=== PATIENT | female | born 1985 | race Caucasian/White ===

== ENCOUNTER 2018-04-11 09:59 | Outpatient (CLI) | payer BC | END 2018-04-11 10:00 | disposition home or self-care (01) | LOC: LABBT 09:59 | PROVIDERS: ATTEND Obstetrics & Gynecology | DX: Z01.812 Encounter for preprocedural laboratory examination (principal); O02.1 Missed abortion | CPT/HCPCS: 85027; 86850; 86870; 86900; 86901; 86922 ==

== ENCOUNTER 2018-04-12 10:03 | Day surgery (SDC) | payer BC ==
[2018-04-11 10:35] VITALS: BMI 31.8
[2018-04-11 11:30] LABS: Hemoglobin 12.9 g/dL (12.0-16.0); Mean Corpuscular HGB CONC 35.7 g/dL (32.0-36.0); Mean Corpuscular Hemoglobin 31.2 pg (27.0-31.0); Mean Corpuscular Volume 87.4 fL (78.0-98.0); Mean Platelet Volume 8.8 fL (7.4-10.4); Platelet Count 132 thou/uL (130-400); RBC Distribution Width 11.9 % (11.5-14.5); Red Blood Cell (RBC) Count 4.15 mill/uL (4.20-5.40); White Blood Cell (WBC) Count 6.6 thou/uL (4.8-10.8)
--- NOTE | 2018-04-11 12:09 | HP ---
HISTORY OF PRESENT ILLNESS: Ms. Raygoza is a 33-year-old white female G2, P1 who is at 12-13 weeks b y last menstrual period with ultrasound confirmation who presented for a 12 week visit today. Unfort unately, no heart tones were auscultated with the Doppler and therefore transabdominal ultrasou nd was performed. A missed miscarriage measuring approximately 9 weeks was noted on transabdominal e xamination with no cardiac activity visualized. This was confirmed by myself along with Dr. Mati Garcia. The patient has had no vaginal bleeding recently or cramping. No fever, no recent illnesses. PAST MEDICAL HISTORY: Negative. PAST SURGICAL HISTORY: Negative. She has had 1 previous , delivery 01/21/2016 at 37 weeks with gestational hypertension, otherwise uncomplicated. FAMILY HISTORY: Noncontributory. SOCIAL HISTORY: Nonsmoker, no current alcohol use. The patient works as a nurse practitioner and is . [facility] SIGN[facility]ANCE: Her blood type is A negative. She did have a positive Rh antibody screening, but had received RhoGAM in the first trimester for some vaginal spotting. HIV negative, h epatitis B surface antigen negative, rubella immune. PHYSICAL EXAMINATION: VITAL SIGNS: The patient's height is 5 feet 6 inches, weight 197. BMI 31.8, blood pressure is 134/8 0, pulse 82, respirations 18. HEENT: Within normal limits. NECK: Supple, no thyromegaly or masses. CHEST: Clear to auscultation. HEART: Regular rate and rhythm. S1, S2 heart sounds, no murmurs, rubs or gallops. ABDOMEN: Soft, nontender, nondistended. No palpable masses. PELVIC: Vulva and vagina had no lesions. Cervix had no gross lesions. Uterus is 8-10 week size. Transabdominal ultrasound confirming 9 week embryonic demise. ASSESSMENT: This is a 33-year-old white female with 9 week embryonic demise. Rh negative stat us. PLAN: Suction D&C scheduled for 04/12/2018. We will place 800 mcg of Cytotec vaginally approximatel y 3-4 hours prior to procedure to help with cervical ripening. She will also receive RhoGAM postoper atively.
[2018-04-12] MEDS ORDERED: Midazolam HCl 2 mg/2 ml Vial ONE ×2 (11:22→11:46)
[2018-04-12] MEDS ORDERED: CEFAZOLIN/Water 2 GM/20 ML SYRINGE ONE (11:22)
[2018-04-12] MEDS ORDERED: Misoprostol 200 MCG TAB ONE (11:29)
[2018-04-12] MEDS ORDERED: Fentanyl 100 MCG/2 ML VIAL ONE (11:46)
[2018-04-12] MEDS ORDERED: Ondansetron HCl/PF 4 MG/2 ML Vial ONE (15:06)
[2018-04-12] MEDS ORDERED: Ketorolac Tromethamine 30 MG/ML VIAL ONE (15:06)
[2018-04-12] MEDS ORDERED: Lidocaine 1% PF 5 ML VIAL ONE (15:06)
[2018-04-12] MEDS ORDERED: Dexamethasone 20 MG/5 ML VIAL ONE (15:06)
[2018-04-12] MEDS ORDERED: PROPOFOL 200 MG/20 ML VIAL ONE (15:06)
--- NOTE | 2018-04-12 15:48 | OP ---
DATE OF PROCEDURE: 04/12/2018 PREOPERATIVE DIAGNOSES: 1. A 32-year-old white female with 9-week embryonic demise. 2. Rh negative blood type. POSTOPERATIVE DIAGNOSES: 1. A 32-year-old white female with 9-week embryonic demise. 2. Rh negative blood type. PROCEDURE PERFORMED: Suction D&C. SURGEON: Deanna Chiu M.D. ANESTHESIA: General with LMA. ESTIMATED BLOOD LOSS: 100 mL. COMPLICATIONS: None. COUNTS: Correct x2. ANTIBIOTICS: Two grams Ancef watermelon harvesting supervisor to the OR. FINDINGS: Uterus approximately 10 weeks size and products evacuated consistent with products of conc eption. DISPOSITION: To recovery room and then plan for discharge home from day stay. DESCRIPTION OF OPERATIVE PROCEDURE: The patient previously received informed consent in regards to jerzy alatorre. She was taken back to the operating room where she received general anesthesia with LMA with out complications. She was placed in dorsal lithotomy position, prepped and draped in usual sterile fashion. In and out catheterization of the bladder was performed during the prep process. Exam unde r anesthesia was performed with the previously mentioned findings and a side-arm speculum was then pl aced in the vagina. The anterior lip of the cervix was grasped with single-tooth tenaculum. The tahira mary sounded to 10 cm. A size 10 curved suction curette was chosen. The cervix was easily dilated to size 18 Bolden dilator and patient previously had placed Cytotec vaginally preoperatively for cervica l ripening. The suction curette was inserted through the cervical os into the endometrial cavity and the intrauterine contents were evacuated with suction at 50 mm of pressure. Once felt, all the tiss ue had been evacuated satisfactorily, a sharp curettage was performed and uterine cavity had a gritty texture throughout indicating complete evacuation. The clots were then removed again with the sucti on curette from the endometrial cavity. The tenaculum was then removed. Hemostasis at the tenaculum site was obtained with a sponge stick. A sidearm speculum was removed. The patient was awakened fr om anesthesia and transferred to the recovery room in stable condition.
== END 2018-04-12 14:15 | disposition home or self-care (01) ==
LOC: SDC 10:03
PROVIDERS: ATTEND Obstetrics & Gynecology
PROC: 10D17ZZ Extraction of Products of Conception, Retained, Via Natural or Artificial Opening (ICD-10-PCS; principal; 2018-04-12)
DX: O03.4 Incomplete spontaneous abortion without complication (principal); Z79.899 Other long term (current) drug therapy; Z3A.09 9 weeks gestation of pregnancy
CPT/HCPCS: 85027; 86850; 86870; 86900; 86901; 86922; 88305; 90384; 96372; J1100; J1885; J2001; J2250; J2405; J2704; J3010

== ENCOUNTER 2019-03-01 18:00 | Inpatient (IN) | payer BC ==
[2019-03-01] MEDS ORDERED: Butorphanol Tartrate 1 MG/ML VIAL SLOW IVP PRN (19:03)
[2019-03-01] MEDS ORDERED: NS / Oxytocin 40 units/1000ml 1,000 ML IV PRN (19:03)
[2019-03-01] MEDS ORDERED: Ibuprofen 800 MG TAB PO PRN (19:03)
[2019-03-01] MEDS ORDERED: hydrALAZINE 20 MG/ML VIAL SLOW IVP PRN (19:03)
[2019-03-01] MEDS ORDERED: Misoprostol 200 MCG TAB PR PRN (19:03)
[2019-03-01] MEDS ORDERED: Lidocaine 1% (PF) 30 ML VIAL SC PRN (19:03)
[2019-03-01] MEDS ORDERED: Promethazine HCl 25 MG/ML VIAL IM PRN (19:03)
[2019-03-01] MEDS ORDERED: Zolpidem Tartrate 5 MG TAB PO PRN (19:03)
[2019-03-01] MEDS ORDERED: Ondansetron PF 4 MG/2 ML Vial IVP PRN (19:03)
[2019-03-01] MEDS ORDERED: HYDROcodone/Acetaminophen 5/325 mg Tablet PO PRN (19:03)
[2019-03-01 19:18] VITALS: BMI 38.7
[2019-03-01] MEDS: Misoprostol 100 MCG TAB VAG SCH ×2 (20:00→23:42)
[2019-03-01 20:05] LABS: Hemoglobin 10.8 g/dL (12.0-16.0); Mean Corpuscular HGB CONC 34.5 g/dL (32.0-36.0); Mean Corpuscular Hemoglobin 30.7 pg (27.0-31.0); Mean Corpuscular Volume 89.1 fL (78.0-98.0); Platelet Count 153 thou/uL (130-400); RBC Distribution Width 13.4 % (11.5-14.5); Red Blood Cell (RBC) Count 3.53 mill/uL (4.20-5.40); White Blood Cell (WBC) Count 8.6 thou/uL (4.8-10.8)
[2019-03-01 20:36] LABS: ALT (SGPT) 9 U/L (8-55); AST (SGOT) 11 U/L (5-34); Albumin 3.3 g/dL (3.5-5.0); Alkaline Phosphatase 116 U/L (40-150); Anion Gap 14 mmol/L (10-20); BUN (Urea Nitrogen) 5 mg/dL (7.0-18.7); Bilirubin, Total 0.5 mg/dL (0.2-1.2); Calc. Creatinine Clearance 213 mL/min (70-130); Calcium 8.3 mg/dL (7.8-10.44); Carbon Dioxide 19 mmol/L (22-29); Chloride 108 mmol/L (98-107); Estimated GFR-MDRD Greater than 90; Globulin 2.7 g/dL (2.4-3.5); Glucose 118 mg/dL (70-105); Potassium 3.5 mmol/L (3.5-5.1); Sodium 137 mmol/L (136-145)
[2019-03-01 20:45] LABS: Syphilis Antibody Nonreactive (Nonreactive); Syphilis Antibody Index 0.05 S/CO (<1.00 Non-Reactive)
[2019-03-01 22:40] LABS: HBSAg Index 0.28 S/CO (0-0.99); Hep B Surf Ag Non-Reactive S/CO (NonReactive)
[2019-03-02] MEDS: Lactated Ringer's 1,000 ML IV SCH ×3 (02:12→13:38)
[2019-03-02] MEDS: Misoprostol 100 MCG TAB VAG SCH (04:25)
[2019-03-02] MEDS: NS w/ Oxytocin 10 units 500 ML IV SCH (08:41)
[2019-03-02] MEDS ORDERED: Fentanyl 4 mcg/Bup 0.1% Cadd 100 ML ONE (10:54)
[2019-03-02] MEDS ORDERED: Bupivacaine 0.5% 10 ML VIAL ONE (10:59)
[2019-03-02] MEDS ORDERED: Fentanyl 100 MCG/2 ML VIAL ONE (10:59)
[2019-03-02] MEDS ORDERED: Bupivacaine 0.25% 10 ML VIAL EPIDURAL SCH (11:27)
[2019-03-02] MEDS ORDERED: Fentanyl 100 MCG/2 ML VIAL I-THECAL SCH (11:27)
[2019-03-02] MEDS ORDERED: Naloxone HCl 0.4 mg/ml Vial IVP PRN ×2 (11:28)
[2019-03-02] MEDS ORDERED: Lactated Ringer's 500 ML IV PRN (11:28)
[2019-03-02] MEDS ORDERED: Acetaminophen 325 MG TAB PO PRN (11:28)
[2019-03-02] MEDS ORDERED: ePHEDrine/0.9% NaCl/PF SYRINGE 50 mg/10 ml SLOW IVP PRN (11:28)
[2019-03-02] MEDS ORDERED: diphenhydrAMINE 50 MG/ML VIAL IVP PRN (11:28)
[2019-03-02] MEDS ORDERED: Ondansetron PF 4 MG/2 ML Vial IVP PRN (11:28)
[2019-03-02] MEDS ORDERED: Promethazine HCl 25 MG/ML VIAL IM PRN (11:28)
[2019-03-02] MEDS ORDERED: Communication Order-Pharmacy FS SCH (11:30)
[2019-03-02] MEDS ORDERED: Fentanyl 4 mcg/Bupivacaine 0.1% Cassette 100 ML EPIDURAL SCH (11:30)
[2019-03-02 15:43] LABS: #Lymphocytes 1.6 thou/uL (1.20-3.40); #Monocytes 0.5 thou/uL (0.11-0.59); #Neutrophils 9.9 thou/uL (1.40-6.50); %Basophils 0.1 % (0.0-1.0); %Eosinophils 0.3 % (0.0-10.0); %Lymphocytes 13.5 % (21.0-51.0); %Monocytes 4.3 % (0.0-10.0); %Neutrophils 81.8 % (42.0-75.0); Hemoglobin 10.2 g/dL (12.0-16.0); Mean Corpuscular HGB CONC 34.1 g/dL (32.0-36.0); Mean Corpuscular Hemoglobin 30.7 pg (27.0-31.0); Mean Platelet Volume 8.7 fL (7.4-10.4); Platelet Count 163 thou/uL (130-400); RBC Distribution Width 13.5 % (11.5-14.5); Red Blood Cell (RBC) Count 3.34 mill/uL (4.20-5.40); White Blood Cell (WBC) Count 12.1 thou/uL (4.8-10.8)
[2019-03-02 15:51] LABS: INR-International Normal Ratio 1.1; PTT 26.9 SEC (22.9-36.1); Prothrombin Time 14.1 SEC (12.0-14.7)
[2019-03-02] MEDS ORDERED: Tranexamic Acid 1,000 MG in Sodium Chloride 0.9% 250 ML 250 ML IVPB ONE (16:02)
[2019-03-02] MEDS ORDERED: Tranexamic Acid 1,000 MG/10 ML VIAL ONE (16:11)
[2019-03-02] MEDS ORDERED: Tranexamic Acid 1,000 MG in Sodium Chloride 0.9% 250 ML 250 ML IVPB SCH (19:30)
[2019-03-02] MEDS ORDERED: Lanolin Ointment 7 GM TUBE TOP PRN (19:48)
[2019-03-02] MEDS ORDERED: Milk Of Magnesia 30 ML UDCUP PO PRN (19:48)
[2019-03-02] MEDS ORDERED: NS / Oxytocin 40 units/1000ml 1,000 ML IV SCH (19:48)
[2019-03-02] MEDS ORDERED: hydrALAZINE 20 MG/ML VIAL SLOW IVP PRN (19:48)
[2019-03-02] MEDS ORDERED: Bisacodyl 10 MG SUPP PR PRN (19:48)
[2019-03-02] MEDS ORDERED: HYDROcodone/Acetaminophen 5/325 mg Tablet PO SCH (20:45)
[2019-03-02] MEDS ORDERED: Docusate Calcium (SURFAK) 240 MG CAP PO SCH (21:00)
--- NOTE | 2019-03-02 22:22 | OP ---
DATE OF PROCEDURE: 03/02/2019 PREOPERATIVE DIAGNOSES: 1. 34-year-old white female, G3, P1, A1 with mild chronic hypertension, labor induction. 2. Cytotec, labor induction, delivered. 3. hemorrhage secondary to vaginal laceration. POSTOPERATIVE DIAGNOSES: 1. 34-year-old white female, G3, P1, A1 with mild chronic hypertension, labor induction. 2. Cytotec, labor induction, delivered. 3. hemorrhage secondary to vaginal laceration. ANESTHESIA: Epidural. CONSULTATION: Dr. Raji Coburn, OB Hospitalist. ESTIMATED BLOOD LOSS: Total 1500 mL. DESCRIPTION OF PROCEDURE: The patient progressed to complete and pushed vigorously with delivery of the head with easy shoulder delivery. Mouth and nares of the were bulb suctioned on the abdomen and the cord was doubly clamped and cut, and baby was handed to the nurses in attendance. Apgars were 8 and 9. Vigorous baby as noted female. weight pending at this time. The usual cord blood was obtained. The placenta was delivered within less than 5 minutes easily. The placenta was intact with no evidence of residual membranes. The uterus was massaged and IV Pitocin administered in usual fashion. The fundus was noted to be firm. The patient was inspected perineally and vaginally. She had a small arterial Pumper in the right labial minora area that was quickly sutured with [id number] stitch of 2-0 chromic suture. Then, she had a second-degree extension in the perineal area with also a small arterial bleeder, which was then run with a running locking suture of 2-0 chromic suture. This area was very friable and continued to ooze despite placement of sutures. There was also evidence of an extension on the right focal vaginal sulcal area and left vaginal sulcal areas. These were continuing to bleed and ooze, and again running locking 2-0 chromic suture was then started on the left side. I called for assistance with Dr. Coburn due to help with visualization. We had a right angle retractor placed anteriorly with exposure. Suction was also brought in to aid with visualization in the vaginal vault. The upper limit of the left sidewall was identified and made a knot there and again, running locking 2-0 chromic was carried out. It continued to ooze into the areas of the friable tissue that was noted and again on the right side, a running locking suture was placed in the vaginal sulci again with some oozing that was non arterial and mainly venous. The cervix had been inspected previously and there did not appear to be any heavy supracervical bleeding noted. We noted that the blood loss was approximately getting close to 1500 mL. The patient's vitals had been checked intermittently and she remained alert, oriented, and asymptomatic. Her blood pressure is 100/60 and pulse was 100, mainly in her baseline. We elected to put a vaginal packing in her vagina due to the continued friability with every time we placed the suture, this caused continued oozing in different areas. A moistened vaginal packing was placed along with additional Ray-Dylon on the left sidewall with pressure and this seemed to provide hemostasis. Daniel catheter was also in place at this time and had been placed during the initial repair process. The patient remained hemodynamically stable and we are going to administer 2 units of packed red cells due to QBL of 1500. I will also give her 1 g TXA to help with oozing and continue packing and monitoring of the bleeding. We will reassess the vaginal bleeding and hopefully will be able to remove the packing in approximately 6 hours. If she had continued bleeding, then we will need to take her for further exploration and also consider placing a vaginal packing with FloSeal with thrombin clotting for the oozing areas. She will also have an ice pack placed in this area to aid in prevention of further oozing. Job ID: [id number]
[2019-03-03] MEDS ORDERED: Lidocaine 1% (PF) 30 ML VIAL ONE (02:01)
[2019-03-03] MEDS ORDERED: HYDROcodone/Acetaminophen 5/325 mg Tablet PO PRN ×3 (02:22→07:44)
--- NOTE | 2019-03-03 02:33 | PDOC.EVN ---
Event Note - Event Note Event Note: 0220 Called to room at pt request to remove vaginal packing due to pain. one raytec and one vag packing removed. Vaginal wall on left and floor in the region of previously placed suture continued to bleed. bleeding was generalized and oozing much less than at time of delivery. Floseal applied and almost immediately bleeding appeared to have stopped . the flowseal's yellowish color did not appear to saturate red once applied. decision made not to replace packing at this time. Will look again in 20min.. 0259 Revaluation shows continued excellent hemostasis. Will pull guerrero. Pending post transfusion cbc.
[2019-03-03] MEDS ORDERED: Benzocaine-Menthol 82.5 ML CAN TOP PRN (03:04)
[2019-03-03 06:37] LABS: Hemoglobin 9.6 g/dL (12.0-16.0); Mean Corpuscular HGB CONC 34.6 g/dL (32.0-36.0); Mean Corpuscular Hemoglobin 31.5 pg (27.0-31.0); Mean Corpuscular Volume 91.1 fL (78.0-98.0); Mean Platelet Volume 8.7 fL (7.4-10.4); Platelet Count 136 thou/uL (130-400); RBC Distribution Width 13.6 % (11.5-14.5); Red Blood Cell (RBC) Count 3.04 mill/uL (4.20-5.40); White Blood Cell (WBC) Count 13.5 thou/uL (4.8-10.8)
[2019-03-03] MEDS ORDERED: Milk Of Magnesia 30 ML UDCUP PO PRN (07:44)
[2019-03-03] MEDS ORDERED: hydrALAZINE 20 MG/ML VIAL SLOW IVP PRN (07:44)
[2019-03-03] MEDS ORDERED: Bisacodyl 10 MG SUPP PR PRN (07:44)
[2019-03-03] MEDS ORDERED: Lanolin Ointment 7 GM TUBE TOP PRN (07:44)
[2019-03-03] MEDS ORDERED: NS / Oxytocin 40 units/1000ml 1,000 ML IV SCH (07:45)
[2019-03-03] MEDS ORDERED: Ferrous Sulfate 325 MG TAB PO SCH (08:00)
[2019-03-03] MEDS: Prenatal Vitamin 1 TAB PO SCH (08:55)
[2019-03-03] MEDS: Ferrous Sulfate 325 MG TAB PO SCH ×2 (08:55→16:24)
[2019-03-03] MEDS: Ibuprofen 800 MG TAB PO SCH ×2 (08:55→16:24)
[2019-03-03] MEDS: Docusate Calcium (SURFAK) 240 MG CAP PO SCH ×2 (08:56→23:45)
[2019-03-03] MEDS ORDERED: Prenatal Vitamin 1 TAB PO SCH (09:00)
[2019-03-03] MEDS ORDERED: Adacel (T-DAP) 0.5 ML SYRINGE IM ONE (09:00)
[2019-03-03] MEDS: Misoprostol 100 MCG TAB VAG SCH ×2 (11:06→11:07)
[2019-03-03] MEDS: NS w/ Oxytocin 10 units 500 ML IV SCH (11:07)
[2019-03-03] MEDS: Lactated Ringer's 1,000 ML IV SCH (11:07)
[2019-03-04] MEDS: Ibuprofen 800 MG TAB PO SCH ×2 (02:11→08:50)
[2019-03-04] MEDS: Docusate Calcium (SURFAK) 240 MG CAP PO SCH (02:12)
[2019-03-04 06:44] LABS: Hemoglobin 8.5 g/dL (12.0-16.0); Mean Corpuscular HGB CONC 32.3 g/dL (32.0-36.0); Mean Corpuscular Volume 92.6 fL (78.0-98.0); Mean Platelet Volume 9.2 fL (7.4-10.4); Platelet Count 123 thou/uL (130-400); RBC Distribution Width 13.5 % (11.5-14.5); Red Blood Cell (RBC) Count 2.84 mill/uL (4.20-5.40); White Blood Cell (WBC) Count 7.8 thou/uL (4.8-10.8)
--- NOTE | 2019-03-04 07:18 | PDOC.PP ---
Post Progress Note Post Day #: 2 Subjective: Ambulating. Voiding. No orthostatic symptoms. Good pain control. PO intake tolerated: yes Flatus: yes Ambulation: yes Vital Signs (12 hours) Temp Pulse Resp BP Pulse Ox 03/04/19 02:10 97.9 F 83 18 110/52 L 03/03/19 19:54 98.0 F 86 18 115/61 97 Weight Weight 240 lb Most Recent Monitor Data Heart Rate from ECG 86 NIBP 129/68 Respiration from ECG 18 - Physical Examination Perineum: intact. No active bleeding. Result Diagrams: 03/04/19 05:53 03/01/19 19:36 Additional Labs: Post Labs Blood Type A NEGATIVE 03/01/19 19:36 Hep Bs Antigen Non-Reactive S/CO (NonReactive) 03/01/19 19:36 - Assessment/Plan Post day 2...PPH from vaginal laceration with 2 units prbcs. Doing well. Stable. Tolerating ambulation/voiding. No further bleeding after floseal application. Routine care...Assess for discharge later today or in AM.
[2019-03-04 08:16] VITALS: BP 117/59; TEMP 98.4
[2019-03-04] MEDS: Prenatal Vitamin 1 TAB PO SCH (08:50)
[2019-03-04] MEDS: Ferrous Sulfate 325 MG TAB PO SCH (08:50)
== END 2019-03-04 14:20 | disposition home or self-care (01) | DRG 806 ==
LOC: L&D 18:48 → 3SW 03-03 09:50
PROVIDERS: ADMIT Obstetrics & Gynecology; ATTEND Obstetrics & Gynecology
PROC: 10E0XZZ Delivery of Products of Conception, External Approach (ICD-10-PCS; principal; 2019-03-02)
PROC: 0KQM0ZZ Repair Perineum Muscle, Open Approach (ICD-10-PCS; 2019-03-02)
PROC: 3E033VJ Introduction of Other Hormone into Peripheral Vein, Percutaneous Approach (ICD-10-PCS; 2019-03-02)
DX: O10.92 Unspecified pre-existing hypertension complicating childbirth (principal); O72.1 Other immediate postpartum hemorrhage; Z37.0 Single live birth; O70.1 Second degree perineal laceration during delivery; Z3A.38 38 weeks gestation of pregnancy
CPT/HCPCS: 36415; 36430; 51702; 80053; 81003; 85025; 85027; 85384; 85610; 85730; 86780; 86850; 86870; 86900; 86901; 86904; 86922; 87340; J0595; J2001; J2590; J3010; J3490; J7050; P9016

== ENCOUNTER 2019-03-08 16:53 | Observation (INO) | payer BC ==
[2019-03-08 17:37] LABS: #Eosinphils 0.1 thou/uL (0.0-0.7); #Lymphocytes 1.4 thou/uL (1.20-3.40); #Monocytes 0.4 thou/uL (0.11-0.59); #Neutrophils 5.9 thou/uL (1.40-6.50); %Basophils 0.4 % (0.0-1.0); %Eosinophils 1.3 % (0.0-10.0); %Lymphocytes 17.9 % (21.0-51.0); %Monocytes 4.6 % (0.0-10.0); %Neutrophils 75.7 % (42.0-75.0); Hemoglobin 9.6 g/dL (12.0-16.0); Mean Corpuscular HGB CONC 33.6 g/dL (32.0-36.0); Mean Corpuscular Hemoglobin 30.5 pg (27.0-31.0); Mean Corpuscular Volume 90.9 fL (78.0-98.0); Platelet Count 167 thou/uL (130-400); RBC Distribution Width 13.7 % (11.5-14.5); Red Blood Cell (RBC) Count 3.15 mill/uL (4.20-5.40); White Blood Cell (WBC) Count 7.8 thou/uL (4.8-10.8)
[2019-03-08 17:55] LABS: ALT (SGPT) 26 U/L (8-55); AST (SGOT) 23 U/L (5-34); Albumin 3.3 g/dL (3.5-5.0); Alkaline Phosphatase 90 U/L (40-150); Anion Gap 14 mmol/L (10-20); BUN (Urea Nitrogen) 12 mg/dL (7.0-18.7); Bilirubin, Total 0.3 mg/dL (0.2-1.2); Calc. Creatinine Clearance 0 mL/min (70-130); Calcium 8.1 mg/dL (7.8-10.44); Carbon Dioxide 22 mmol/L (22-29); Chloride 111 mmol/L (98-107); Estimated GFR-MDRD 88; Globulin 2.2 g/dL (2.4-3.5); Glucose 87 mg/dL (70-105); Lipase 17 U/L (8-78); Protein, Total 5.5 g/dL (6.0-8.3); Sodium 143 mmol/L (136-145)
[2019-03-08 17:56] LABS: Potassium 4.1 mmol/L (3.5-5.1)
--- NOTE | 2019-03-08 18:10 | RAD ---
Exam: Chest one view HISTORY:Dyspnea, bradycardia Comparison: None FINDINGS: Lungs: Interstitial prominence bilaterally Cardiac silhouette:Accentuated by portable technique Pulmonary vessels: Normal Pleural Spaces: Clear Pneumothorax: None Osseous abnormalities: None of acuity. IMPRESSION: Mild prominence of cardiac silhouette and pulmonary vasculature. Correlate with patient's fluid status. As necessary, imaging follow-up may be obtained.
--- NOTE | 2019-03-08 18:16 | CT ---
EXAM: Abdomen and pelvic CT scan with contrast: HISTORY: Peripartum with anemia, bradycardia. COMPARISON: None FINDINGS: Mild interstitial septal prominence of the imaged lower lung zones, favoring edema. Liver: Unremarkable. Gallbladder: Heterogeneity of the gallbladder with a prominent wall and associated wall hyperdensity. Pancreas: Unremarkable Spleen: Borderline-sized, without focal lesion. Adrenal glands: Right adrenal mass is present, of indeterminate etiology. This is not classified as a benign, lipid rich adenoma on the basis of this exam. Kidneys: No renal calculus or acute obstruction. No solid or cystic mass. Bowel: Incompletely evaluated without enteric contrast administration Urinary Bladder: Thick-walled urinary bladder, with moderate distention Adenopathy: No adenopathy within the abdomen or pelvis. Free Air: No free air. Ascites: Mild free fluid. Uterus/adnexa: Marked enlargement and heterogeneity of the uterus with surrounding periuterine edema/ fluid and free pelvic fluid. There is also soft tissue prominence and heterogeneity of the lower uterine segment. Locule of air density is seen within the central aspect of the lower uterus. Osseous structures: No acute osseous abnormalities. IMPRESSION: Marked enlargement and heterogeneity of the uterus, some of which is due to recent, peripartum state. However, the possibility of hemorrhage and/or retained products of conception not excluded on the basis of this exam. As internal air is seen, the possibility of infection should also be excluded cli nically. Incidental indeterminate right adrenal mass. Dedicated follow-up adrenal mass protocol CT exam is rec ommended. Transcribed Date/Time: 03/08/2019 6:36 PM
[2019-03-08] MEDS ORDERED: Furosemide 20 MG/2 ML VIAL ONE (18:57)
[2019-03-08] MEDS ORDERED: Atropine Sulfate 1 mg/10 ml Syringe ONE (18:57)
[2019-03-08] MEDS ORDERED: Aspirin Chewable 81 MG TAB ONE (19:12)
[2019-03-08] MEDS ORDERED: Nitroglycerin 2% Ointment 1 INCH/1 GM Packet ONE (19:12)
[2019-03-08 21:32] LABS: Troponin I Less than 0.010 ng/mL (< 0.028)
[2019-03-08 21:54] VITALS: BMI 37.0
[2019-03-08] MEDS ORDERED: Atropine Sulfate 1 mg/10 ml Syringe IVP PRN (23:05)
[2019-03-08] MEDS ORDERED: Senokot S 8.6-50 MG TAB PO PRN (23:07)
[2019-03-08] MEDS ORDERED: Acetaminophen 325 MG TAB PO PRN (23:07)
[2019-03-08] MEDS ORDERED: Calcium Carbonate 500 MG ChewTAB PO PRN (23:07)
[2019-03-08] MEDS ORDERED: Ondansetron PF 4 MG/2 ML Vial IVP PRN (23:07)
[2019-03-08] MEDS ORDERED: Ondansetron ODT 4 MG TAB PO PRN (23:07)
[2019-03-08] MEDS ORDERED: Nitroglycerin 0.4 MG TAB (25 Tab Bottle) PO PRN (23:08)
--- NOTE | 2019-03-09 00:05 | HP ---
PRIMARY CARE PHYSICIAN: Dr. Alston. PRIMARY SUPERVISOR LEAF [employer]ING REPAIR: Dr. Chiu. CHIEF COMPLAINT: Shortness of breath. HISTORY OF PRESENT ILLNESS: The patient is a 34-year-old white female with recent induced vaginal delivery, presented to the emergency room with above complaints. The patient had hemorrhage from vaginal lacerations requiring 2 units of PRBC. She did well and was subsequently discharged 4 days ago. Post discharge, she initially felt fine. Two days ago, her noticed abnormal breathing pattern when she was sleeping. She also noticed that her heart rate was in 40s on her Apple watch. Since yesterday, she started having heaviness in her chest along with shortness of breath on mild exertion. She has some lightheadedness as well. However denies any syncope, palpitations. She also noticed bilateral lower extremity swelling, however denies any pain. She denies any fever, chills , abdominal pain, nausea, vomiting. PAST MEDICAL HISTORY: 1. Recent induced vaginal delivery with vaginal laceration requiring 2 units of PRBC. 2. Anemia. 3. Irritable bowel syndrome. PAST SURGICAL HISTORY: Vaginal delivery recently. ALLERGIES: NO KNOWN DRUG ALLERGIES. CURRENT HOME MEDICATION: 1. Ibuprofen as needed. 2. Colace 200 mg at bedtime. 3. Iron 325 mg daily. 4. multivitamin daily. SOCIAL HISTORY: The patient currently lives at home with her family. She denies any history of alcohol, tobacco, or drug use. FAMILY HISTORY: Mother oh with hypothyroidism and uterine fibroids. Hypertension in her father. REVIEW OF SYSTEMS: All other review of systems reviewed and were found negative. PHYSICAL EXAMINATION: VITAL SIGNS: Temperature 98.7, respirations of 18, pulse rate of 54, blood pressure 161/72, O2 saturation 99% on room air. GENERAL: A 34-year-old female in no apparent distress. Symptomatically feels better after Lasix in the emergency room. HEENT: Head, atraumatic and normocephalic. Sclerae anicteric. Moist mucous membranes. No oral lesion. NECK: Supple. No JVD appreciated. No carotid bruit. LUNGS: Clear to auscultation bilaterally. No wheezing, rales, rhonchi. HEART: S1, S2 present. Regular rate and rhythm. No rubs or gallops appreciated. ABDOMEN: Soft, nontender. Bowel sounds present. No rebound or guarding. No costovertebral angle tenderness. EXTREMITIES: 1 to 2+ edema in bilateral lower extremity. No calf tenderness. Peripheral vascular radial pulses palpable bilaterally. SKIN: Warm and dry. LYMPHATIC: No palpable lymph nodes in the neck. MUSCULOSKELETAL: No joint swelling or tenderness. LABORATORY FINDINGS: WBC 7.8, hemoglobin 9.6, hematocrit 28.6, platelet 167. Chemistry showed sodium 143, potassium 4.1, chloride of 111, bicarb 22, BUN 12, creatinine 0.75. Albumin 3.3. BNP of 342. Troponin was negative. IMAGING STUDIES: 1. Chest x-ray by my review showed mild pulmonary vascular congestion. 2. CT scan of the abdomen and pelvis showed marked enlargement of the uterus due to recent peripartum state. There was internal air seen. There was also an indeterminate right atrial mass. 3. EKG by my review showed sinus bradycardia. IMPRESSION: 1. Shortness of breath of unclear etiology with sinus bradycardia. 2. Bilateral lower extremity edema, rule out deep venous thrombosis. 3. Recent induced vaginal delivery requiring 2 units of packed red blood cells. 4. Anemia. 5. Obesity with a body mass index of 37.1. 6. Adrenal Adenoma on CT. PCP to follow. PLAN: 1. The patient will be monitored on the telemetry unit. Echocardiogram will be obtained. We will recheck labs in a.m. including iron profile. We will check TSH. We will rule out DVT. Consult Cardiology due to significant bradycardia. Atropine as needed. 2. Continue gentle diuresis. The patient has diuresed around 4 L after 40 mg IV Lasix in the emergency room. She also received a dose of aspirin in the emergency room. We will discontinue nitroglycerin patch for now. Plan was discussed with the patient in detail. She stated understanding. Job ID: [id number] MTDD
[2019-03-09] MEDS ORDERED: Ibuprofen 600 MG TAB PO PRN (04:46)
[2019-03-09 06:41] LABS: Anion Gap 11 mmol/L (10-20); BUN (Urea Nitrogen) 11 mg/dL (7.0-18.7); Calc. Creatinine Clearance 166 mL/min (70-130); Carbon Dioxide 26 mmol/L (22-29); Chloride 108 mmol/L (98-107); Estimated GFR-MDRD 86; Glucose 97 mg/dL (70-105); Iron 26 ug/dL (50-170); Iron Binding Capacity, Total 336 mcg/dL (265-497); Magnesium 1.7 mg/dL (1.6-2.6); Phosphorus 3.9 mg/dL (2.3-4.7); Potassium 3.5 mmol/L (3.5-5.1); Sodium 141 mmol/L (136-145)
[2019-03-09 06:59] LABS: Ferritin 13.38 ng/mL (10-291); Thyroid Stimulating Hormone 1.9747 uIU/mL (0.35-4.94)
--- NOTE | 2019-03-09 08:43 | ULT ---
EXAM: Bilateral lower extremity venous Doppler evaluation PROVIDED CLINICAL HISTORY: Bilateral lower extremity edema TECHNIQUE: Grayscale, color doppler and spectral doppler images were obtained of the common femoral , femoral, profunda femoral, popliteal and posterior tibial veins of both lower extremities. FINDINGS: There is normal compression, flow and augmentation seen with the deep venous structures within both l ower extremities. IMPRESSION: No sonographic evidence for lower extremity deep venous thrombosis.
[2019-03-09] MEDS ORDERED: Furosemide 20 MG/2 ML VIAL SLOW IVP SCH (09:00)
[2019-03-09] MEDS ORDERED: Ferrous Sulfate 325 MG TAB PO SCH (09:00)
[2019-03-09] MEDS ORDERED: Prenatal Vitamin 1 TAB PO SCH (09:00)
[2019-03-09 11:53] LABS: #Eosinphils 0.2 thou/uL (0.0-0.7); #Lymphocytes 1.5 thou/uL (1.20-3.40); #Monocytes 0.4 thou/uL (0.11-0.59); #Neutrophils 5.2 thou/uL (1.40-6.50); %Basophils 0.4 % (0.0-1.0); %Eosinophils 2.1 % (0.0-10.0); %Lymphocytes 20.6 % (21.0-51.0); %Neutrophils 71.9 % (42.0-75.0); Hemoglobin 9.9 g/dL (12.0-16.0); Mean Corpuscular HGB CONC 32.7 g/dL (32.0-36.0); Mean Corpuscular Volume 91.9 fL (78.0-98.0); Mean Platelet Volume 8.3 fL (7.4-10.4); Platelet Count 192 thou/uL (130-400); RBC Distribution Width 13.2 % (11.5-14.5); Red Blood Cell (RBC) Count 3.29 mill/uL (4.20-5.40); White Blood Cell (WBC) Count 7.2 thou/uL (4.8-10.8)
[2019-03-09] MEDS ORDERED: ISOVUE-370 76%-LOCM 1 ML ONE (12:01)
[2019-03-09 12:03] VITALS: TEMP 99
[2019-03-09 12:05] LABS: Lactic Acid 0.6 mmol/L (0.5-2.2)
[2019-03-09 12:49] VITALS: BP 139/63
--- NOTE | 2019-03-09 13:31 | CT ---
CTA Angio Chest W WO Con 03/09/2019 12:27 PM Indication: Shortness of breath and chest pain; 7 days Technique: Multiple CTA images were obtained of the thorax with IV contrast. 3D reformatted images were constructed from the raw data. Comparison: None Findings: Pulmonary arteries: No central or segmental pulmonary embolus is evident. Heart and Great Vessels: Heart size appears normal. There is a small pericardial effusion Lungs:There is mild subsegmental volume loss within the posterior left lower lobe. No confluent airsp katarzyna opacity is evident. Pleural space: There is a very small left-sided pleural effusion Upper Abdomen: No acute abnormality. Osseous Structures: No acute osseous abnormality. Impression: 1. No central or segmental pulmonary embolus demonstrated. 2. Small pericardial effusion 3. Small left pleural effusion
--- NOTE | 2019-03-09 13:46 | CON ---
DATE OF CONSULTATION: 03/09/2019 REASON FOR CONSULTATION: Bradycardia. HISTORY OF PRESENT ILLNESS: Dalila is a pleasant 34-year-old woman, who recently had delivered her daughter one week ago. She did have a vaginal tear and required 2 units of packed red blood cells. She states she has had increased shortness of breath and tightness present. She also was noted to be bradycardic via her apple watch with heart rate in the low 40s. After reviewing the monitor on telemetry monitoring, her heart rate did dip down to 46 during sleeping hours, otherwise has been above 50. She did receive Lasix and has had marked diuresis per her account of over 5 L. There is only documentation of 1200 L this morning. No other ameliorating, exacerbating, or precipitating factors present. Venogram was performed and was negative. PAST MEDICAL HISTORY: As above. ALLERGIES: NONE. MEDICATIONS: Include, 1. Colace. 2. Iron. 3. vitamins. 4. P.r.n. ibuprofen. SOCIAL HISTORY: No current tobacco or alcohol use. FAMILY HISTORY: Negative for CAD. REVIEW OF SYSTEMS: A 10-point review of systems is reviewed as above, otherwise negative. PHYSICAL EXAMINATION: GENERAL: Patient is a pleasant woman who is in no acute distress. The patient appears their stated age. VITAL SIGNS: Blood pressure 139/63, pulse 52, respiration 20. NEUROLOGIC: The patient is alert and oriented x3 with no focal neurologic deficits. HEENT: Sclerae without icterus. Mouth has moist mucous membranes with normal pallor. NECK: No JVD. Carotid upstroke brisk. No bruits bilaterally. LUNGS: Clear to auscultation with unlabored respirations. BACK: No scoliosis or kyphosis. CARDIAC: Regular rate and rhythm with normal S1 and S2. No S3 or S4 noted. No significant rubs, murmurs, thrills, or gallops noted throughout the precordium. PMI is not displaced. There is no parasternal heave. ABDOMEN: Soft, nontender, nondistended. No peritoneal signs present. No hepatosplenomegaly. No abnormal striae. EXTREMITIES: 2+ femoral and 2+ dorsalis pedis pulses. No cyanosis, clubbing, or edema. SKIN: No gross abnormalities. PERTINENT LABORATORY DATA: Hemoglobin 9.9. Creatinine 0.7. BNP of 342. Echo Doppler shows LVEF normal, estimated at 55% to 60% with known significant valvular dysfunction. IMPRESSION: 1. Bradycardia. 2. Shortness of breath. RECOMMENDATIONS: Sheila has lost close to 5 L per her account. There is only documentation of 1200 L after Lasix therapy. She does state she feels better. No syncope or presyncope noted. At this point, I would recommend a CT angio to assess for emboli. If negative, I would recommend a 3-week event recorder to assess for any significant dysrhythmias. She does have elevated pulmonary pressures and may be related to a 40-pound weight gain during her recent . I would recommend repeating her echo within one month. Job ID: [id number]
[2019-03-09] MEDS ORDERED: Docusate 100 MG CAP PO SCH (21:00)
== END 2019-03-09 16:06 | disposition home or self-care (01) ==
LOC: SCSER 16:53 → 2SW 20:27
PROVIDERS: ADMIT Internal Medicine; ATTEND Internal Medicine
DX: O99.89 Other specified diseases and conditions complicating pregnancy, childbirth and the puerperium (principal); R06.02 Shortness of breath; R07.9 Chest pain, unspecified; R00.1 Bradycardia, unspecified; R42 Dizziness and giddiness; O90.81 Anemia of the puerperium; D64.9 Anemia, unspecified; O99.215 Obesity complicating the puerperium; E66.9 Obesity, unspecified; Z79.899 Other long term (current) drug therapy
CPT/HCPCS: 36415; 71045; 71275; 74177; 80048; 80053; 82728; 83540; 83550; 83605; 83690; 83735; 83880; 84100; 84443; 84484; 85025; 85379; 86850; 86900; 86901; 93005; 93306; 93970; 94760; 96374; 96375; 96376; G0378; J0461; J1940; Q9966

== ENCOUNTER 2019-03-21 09:08 | Outpatient (CLI) | payer BC ==
--- NOTE | 2019-03-21 10:13 | CT ---
CT ABDOMEN PELVIS WITH AND WITHOUT IV CONTRAST (ADRENAL PROTOCOL): HISTORY: Right adrenal mass COMPARISON: 03/08/2019 FINDINGS: A 1.5 cm right adrenal nodule has attenuation values less than 10 Hounsfield units on the noncontrast ed study, consistent with a benign lipid rich adrenal adenoma. The liver, spleen, pancreas, left adrenal gland and kidneys are normal. No calcified gallstones are s een. No free air, free fluid or lymphadenopathy seen in the abdomen. The bony structures are unremarkable. The lung bases are clear. IMPRESSION: Benign right adrenal adenoma.
[2019-03-21] MEDS ORDERED: Iopamidol 370 76% 100 ML VIAL ONE (11:44)
== END 2019-03-21 09:09 | disposition home or self-care (01) ==
LOC: CT 09:08
PROVIDERS: ATTEND Family Medicine
DX: E27.8 Other specified disorders of adrenal gland (principal); D35.01 Benign neoplasm of right adrenal gland
CPT/HCPCS: 74170; Q9967

== ENCOUNTER 2020-07-02 15:34 | Outpatient (CLI) | payer BC ==
--- NOTE | 2020-07-02 16:17 | ULT ---
Thyroid sonogram HISTORY: Nodule. FINDINGS: Right thyroid lobe measures up to 4.8 cm. Homogeneous echotexture. A predominantly cystic o rob well-circumscribed nodule along the lateral margin is 0.8 cm x 0.8 cm x 0.5 cm greatest diameters. TI RADS 1. A 0.4 cm cystic lesion lies immediately deep to the first. Left thyroid lobe is 4.7 cm with a normal appearance. Isthmus is 0.4 cm thick. IMPRESSION : Very small right thyroid cysts. No aggressive lesions are apparent. No significant abnormalities.
== END 2020-07-02 15:35 | disposition home or self-care (01) ==
LOC: ULT 15:34
PROVIDERS: ATTEND Internal Medicine
DX: E04.1 Nontoxic single thyroid nodule (principal)
CPT/HCPCS: 76536

== ENCOUNTER 2020-07-12 07:34 | Outpatient (CLI) | payer BC ==
--- NOTE | 2020-07-12 08:42 | CT ---
EXAM: CT Abdomen W WO Con DATE: 07/12/2020 7:50 AM INDICATION: Adrenal mass COMPARISON: Prior CT the abdomen with and without contrast dated March 21, 2019 FINDING: The 1.3 cm right adrenal nodule is not appreciably changed in size or configuration. The in ternal Hounsfield units on noncontrast examination is 7.43 Hounsfield units. This is consistent with a benign adrenal adenoma. Left adrenal gland is normal-appearing. Liver, spleen, pancreas and visualized retroperitoneum appear within normal limits. There is a mild a mount of retained stool within colon. No acute osseous abnormality is evident. IMPRESSION:Stable benign right adrenal adenoma. No additional follow-up is recommended unless clinica lly indicated.
[2020-07-12] MEDS ORDERED: Iopamidol-370 76% 500 ML 1 ML ONE (09:00)
== END 2020-07-12 07:35 | disposition home or self-care (01) ==
LOC: BICCT 07:34
PROVIDERS: ATTEND Internal Medicine
DX: E27.8 Other specified disorders of adrenal gland (principal); D35.01 Benign neoplasm of right adrenal gland
CPT/HCPCS: 74170; Q9967